=== PATIENT | female | born 1935 | race Caucasian/White ===

== ENCOUNTER 2016-12-08 21:13 | Inpatient (IN) | payer MEDICARE, OTHER ==
[~2016-12-08] VITALS: Ht 157.5 cm; Wt 63.5 kg
[~2016-12-08 21:13] MED LIST: ACET325T21 PO; ASPI81TA9 PO; ATOR10TA60 PO; CLOP75TA PO; CRAN200C PO; CYAN10002 IM; DOCU100C5 PO; FURO40TA4 PO; GABA-586 PO; GLIP5TAB10 PO; HYDR-2666 PO; HYDR-971 PO; INSU100V13 SQ; LIOT5TAB3 PO; LORA0.5T PO; LORA10TA3 PO; LOSA50TA6 PO; MELA3TAB PO; MEMA10TA PO; METAMUCIL425 GM PO; METF500T4 PO; METO-269 PO; NITR0.4T SL; OMEP20CA9 PO; PARO20TA3 PO; POTA10CA PO; POTA10TA10 PO; PRAV10TA2 PO; PROM25TA10 PO; PROP15DR EACHEYE; PROP1DRO OP; SERT50TA8 PO; SOLI10TA PO; TRAM50TA PO; VALS80TA3 PO
--- NOTE | 2016-12-08 22:04 | ED.ADGEN ---
Past Medical History Past Medical History: CAD, Dementia, Depression, Diabetes-Type I, GERD, Hypertension Additional Past Medical Histor: sleep apnea Past Surgical History: Other Additional Past Surgical Histo: RT MASTECTOMY AND LUMPECTOMY Alcohol Use: None Drug Use: None Adult General Chief Complaint Chief Complaint: MECHANICAL FALL HPI HPI Patient is a 81 year old woman, history of dementia, hypertension, depression, GERD, who presents to the emergency department via EMS from her nursing facility with report of fall. Patient appears to be at her baseline mental status per report, and is confused, complaining of pain in her left hip, left lower extremity is noted to be rotated. Per report, patient did strike her head against the wall also. No loss of consciousness was reported. Patient cannot give me details regarding the event. She denies any other pain at this time. C- collar placed upon arrival to the emergency department due to mechanism action at baseline mental status per Nexus criteria. Review of Systems Review of Systems Constitutional: Denies fever or chills. [] Eyes: Denies change in visual acuity. [] HENT: Denies nasal congestion or sore throat. [] Respiratory: Denies cough or shortness of breath. [] Cardiovascular: Denies chest pain or edema. [] GI: Denies abdominal pain, nausea, vomiting, bloody stools or diarrhea. [] : Denies dysuria. [] Musculoskeletal: Denies back pain, pain in the left hip. Integument: Denies rash. [] Neurologic: Denies headache, focal weakness or sensory changes. [] Endocrine: Denies polyuria or polydipsia. [] Lymphatic: Denies swollen glands. [] Psychiatric: Denies depression or anxiety. [] Current Medications Current Medications Current Medications Medications (Trade) Dose Ordered Sig/Yudith Start Time Stop Time Status Last Admin Dose Admin Fentanyl Citrate (Fentanyl 2ml Vial) 50 mcg PRN Q15MIN PRN 12/09/16 02:15 12/10/16 02:14 12/09/16 03:17 50 MCG Allergies Allergies Allergies Coded Allergies Type Severity Reaction Last Updated Verified codeine Allergy Intermediate 09/10/14 Yes hydrocodone bitartrate Allergy Intermediate 09/10/14 Yes shellfish derived Allergy Intermediate 09/10/14 Yes Physical Exam Physical Exam Constitutional: Well developed, well nourished, patient in mild distress secondary to pain, and confused, non-toxic appearance. [] HENT: Normocephalic, atraumatic, bilateral external ears normal, oropharynx moist, no oral exudates, nose normal. [] Eyes: PERRLA, EOMI, conjunctiva normal, no discharge. [] Neck: Normal range of motion, no tenderness, supple, no stridor. [] Cardiovascular:Heart rate regular rhythm, no murmur, S1, S2, rubs or gallops. [] Lungs & Thorax: Bilateral breath sounds clear to auscultation, no wheezing, rhonchi, rales. No chest wall crepitus or tenderness. [] Abdomen: Bowel sounds normal, soft, no tenderness, no rebound, rigidity, no guarding, no masses, no pulsatile masses. [] Skin: Warm, dry, no erythema, no rash. [] Back: No tenderness, no step-offs or deformities, no midline or paraspinal tenderness, no CVA tenderness. [] Extremities: Patient's left lower extremity noted to be rotated, held flexed position, patient complaining of pain, tenderness palpation in the groin and lateral aspect of the hip. No external signs of trauma identified, no cyanosis, no clubbing, other extremities are unremarkable. No edema. Neurologic: Alert and oriented X 1, normal motor function, normal sensory function, no focal deficits noted. [] Psychologic: Affect normal, judgement normal, mood normal. [] Current Patient Data Vital Signs Vital Signs Date Time Temp Pulse Resp B/P Pulse Ox O2 Delivery O2 Flow Rate FiO2 12/09/16 03:17 18 Room Air 12/09/16 02:30 80 114/54 93 12/08/16 21:48 97.8 97.8 Lab Values Laboratory Tests Test 12/08/16 22:20 12/09/16 00:02 Urine Collection Type U cath Urine Color Yellow Urine Clarity Cloudy Urine pH 5.5 Urine Specific [place] 1.025 Urine Protein Negativemg/dL (NEG-TRACE) Urine Glucose (UA) >=1000mg/dL (NEG) Urine Ketones (Stick) Negativemg/dL (NEG) Urine Blood Trace (NEG) Urine Nitrite Positive (NEG) Urine Bilirubin Negative (NEG) Urine Urobilinogen Dipstick 0.2mg/dL (0.2 mg/dL) Urine Leukocyte Esterase Moderate (NEG) Urine RBC 3-5/HPF (0-2) Urine WBC 1-4/HPF (0-4) Urine Squamous Epithelial Cells Mod/LPF Urine Transitional Epithelial Cells Occ/LPF Urine Bacteria Many/HPF (0-FEW) Urine Opiates Screen Neg (NEG) Urine Methadone Screen Neg (NEG) Urine Barbiturates Neg (NEG) Urine Phencyclidine Screen Neg (NEG) Urine Amphetamine/Methamphetamine Neg (NEG) Urine Benzodiazepines Screen Pos (NEG) Urine Cocaine Screen Neg (NEG) Urine Cannabinoids Screen Neg (NEG) Urine Ethyl Alcohol Neg (NEG) White Blood Count 11.4x10^3/uL (4.0-11.0) H Red Blood Count 4.49x10^6/uL (3.50-5.40) Hemoglobin 13.3g/dL (12.0-15.5) Hematocrit 39.9% (36.0-47.0) Mean Corpuscular Volume 89fL (79-100) Mean Corpuscular Hemoglobin 30pg (25-35) Mean Corpuscular Hemoglobin Concent 33g/dL (31-37) Red Cell Distribution Width 13.2% (11.5-14.5) Platelet Count 156x10^3/uL (140-400) Neutrophils (%) (Auto) 89% (31-73) H Lymphocytes (%) (Auto) 6% (24-48) L Monocytes (%) (Auto) 4% (0-9) Eosinophils (%) (Auto) 0% (0-3) Basophils (%) (Auto) 0% (0-3) Neutrophils # (Auto) 10.1x10^3uL (1.8-7.7) H Lymphocytes # (Auto) 0.7x10^3/uL (1.0-4.8) L Monocytes # (Auto) 0.5x10^3/uL (0.0-1.1) Eosinophils # (Auto) 0.0x10^3/uL (0.0-0.7) Basophils # (Auto) 0.0x10^3/uL (0.0-0.2) Segmented Neutrophils % 82% (35-66) H Band Neutrophils % 6% (0-9) Lymphocytes % 6% (24-48) L Monocytes % 6% (0-10) Toxic Granulation Slight Toxic Vacuolation Slight Platelet Estimate Adequate (ADEQUATE) Prothrombin Time 12.6SEC (11.7-14.0) Prothrombin Time INR 1.0 (0.8-1.1) PTT 25SEC (24-38) Sodium Level 141mmol/L (136-145) Potassium Level 4.0mmol/L (3.5-5.1) Chloride Level 102mmol/L (98-107) Carbon Dioxide Level 28mmol/L (21-32) Anion Gap 11 (6-14) Blood Urea Nitrogen 21mg/dL (7-20) H Creatinine 0.9mg/dL (0.6-1.0) Estimated GFR (Cockcroft-Gault) 60.2 BUN/Creatinine Ratio 23 (6-20) H Glucose Level 305mg/dL (70-99) H Calcium Level 9.7mg/dL (8.5-10.1) Total Bilirubin 0.4mg/dL (0.2-1.0) Aspartate Amino Transferase (AST) 21U/L (15-37) Alanine Aminotransferase (ALT) 22U/L (14-59) Alkaline Phosphatase 74U/L (46-116) Troponin I Quantitative < 0.017ng/mL (0.000-0.055) [id number]-Ymk-X-Type Natriuretic Peptide 129pg/mL (0-449) Total Protein 7.4g/dL (6.4-8.2) Albumin 3.5g/dL (3.4-5.0) Albumin/Globulin Ratio 0.9 (1.0-1.7) L Laboratory Tests 12/09/16 00:02 Laboratory Tests 12/09/16 00:02 EKG EKG EC: Sinus rhythm, heart rate 74 beats minute, left axis deviation, with moderate baseline artifact noted, QTc of 400, NM 150, QRS of 90, no ST elevations or depressions, abnormal ECG, does not meet STEMI criteria. As interpreted by me. [] Radiology/Procedures Radiology/Procedures [] [facility] [address] [place], [place] [id number] IMAGING REPORT Signed PATIENT: CANDACE RODRIGUEZ ACCOUNT: [id number] : 1935 LOCATION: ER AGE: 81 SEX: F EXAM STATUS: REG ER ORD. PHYSICIAN: SAVANNAH RAMIRES DO REASON: fall/head injury PROCEDURE: HEAD AND CERVICAL SPINE WO PROCEDURE CT Head CT cervical spine without intravenous contrast. HISTORY Trauma, fall, pain. TECHNIQUE Axial images are obtained of the head from the skull base through the vertex without IV contrast Noncontrast CT of the cervical spine was performed. Axial, sagittal, and coronal reconstructions were obtained. Exposure: One or more of the following individualized dose reduction techniques were utilized for this examination: 1. Automated exposure control. 2. Adjustment of the mA and/or kV according to patient size. 3. Use of iterative reconstruction technique. COMPARISON CT head January 09, 2016. FINDINGS CT head: The ventricles are appropriate in size, shape, and location for the patient's age.No obvious intracranial mass, midline shift, or obvious acute infarction is identified.Basilar cisterns are patent. There is a thin, acute, right lateral hemispheric subdural hemorrhage which has maximum thickness of 4 millimeters. No midline midline shift is identified. Bone windows demonstrate no acute calvarial abnormality.The visualized paranasal sinuses appear clear. Large scalp hematoma is seen at the left aspect of the vertex. CT C-spine: No acute fracture or acute malalignment is identified. No prevertebral soft tissue swelling is seen. Multilevel degeneration is present with facet and uncovertebral hypertrophy as well as multilevel degenerative disc disease. IMPRESSION 1. Acute thin right lateral hemispheric subdural hemorrhage. 2. No acute osseous traumatic injury identified in the cervical spine. 3. Results discussed with emergency department staff, Dr. Ramires, at 2355 hours. Electronically signed by: Luis Garnett MD (Dec 08, 2016 23:56:35) DICTATED and SIGNED BY: LUIS GARNETT MD DATE: 12/08/16 5421 CC: SAVANNAH RAMIRES DO; BENITO GEIGER MD ~ Chest x-ray: One view: Suboptimal respiratory effort, some flattening of diaphragms noted, no significant infiltrates, effusions, soft tissue or bony abnormalities identified. As interpreted by me. Pelvis and left hip: Three-view: Patient with a femoral neck fracture of the left femur, no other bony or soft tissue abnormalities identified. As interpreted by me. Course & Med Decision Making Course & Med Decision Making Pertinent Labs and Imaging studies reviewed. (See chart for details) Additional information obtained from patient's her nursing facility, patient is on hospice. Patient's hospice nurse, Mercy, did contact the ED, states that she is en route to the ED. She states that she has been in contact with the patient' s the POA, her grandson, who is requesting the patient be evaluated at this time. I also spoke with Dr. Geiger, the patient's primary care provider and associate director of nursing, will proceed with CT of the head and cervical spine at this time, x-ray of the hip and pelvis, as patient's examination is consistent with a left hip fracture. Patient received several doses of IV fentanyl in the ED, resting more comfortably at that time. CT of the head and cervical spine reveals small lateral hemispheric right sided subdural hematoma. No midline shift identified, maximum thickness of 4 mm. No abnormalities identified in the cervical spine, patient's c-collar was cleared. Urinary tract infection noted on patient's laboratory studies, IV ceftriaxone initiated. I did speak with the patient's grandson, who was contacted by nurse [place], he expressed that he was hesitant to have the patient undergoing any surgical procedures, due to her fragile medical status. Discussed that I understand that his concerns, and the goal would be to make the patient as comfortable as possible. I did speak with Dr. Dickey of orthopedics, all findings as above including the patient's small known hematoma, and underlying cardiac and renal disease discussed. It is his opinion that with the patient's fracture, that a surgical procedure that would be aimed at stabilizing the hip to promote maximal comfort and quality would be potentially beneficial for the patient. Hospice nurse Mercy and charge nurse Johanna did attempt to reach the patient's grandson again, to enable a further discussion regarding the benefits versus risk of proceeding with a stabilizing surgery, these attempts were unsuccessful, several messages were left for. Multiple attempts made to reach Dr. Geiger, we did discuss the patient's examination and course, at this time he requests the patient be admitted to his service, to revoke hospice at this point, in order to allow for patient's family to be fully apprised of potential benefits versus risk and to determine the best course for maximizing patient's comfort and quality. No indication for neurosurgical consultation as intervention would not be desired. Will consult Dr. Dickey to speak with the family. Based on wishes expressed by patient's family, patient will remain DNR at this time, will continue pain medication, supple oxygen, admitted to a medical surgical bed. Dragon Disclaimer Dragon Disclaimer This electronic medical record was generated, in whole or in part, using a voice recognition dictation system. Departure Impression: Primary Impression: Urinary tract infection Additional Impressions: Fracture of neck of left femur Subdural hematoma Disposition: ADMITTED INPATIENT Admitting Physician: Benito Geiger Condition: IMPROVED Problem Qualifiers SAVANNAH RAMIRES DO Dec 08, 2016 22:04
[2016-12-08 23:10] LABS: BILIRUBIN,URINE NEGATIVE (NEG); GLUCOSE,URINE >=1000 mg/dL (NEG); NITRITE,URINE POSITIVE (NEG); PH,URINE 5.5; PROTEIN,URINE NEGATIVE (NEG-TRACE); UROBILINOGEN,URINE 0.2 mg/dL (0.2 mg/dL)
[2016-12-08 23:21] LABS: BACTERIA,URINE MANY /HPF (0-FEW); SQUAMOUS EPITHELIAL CELL,UR MOD /LPF
[2016-12-08 23:24] LABS: BARBITURATES NEG (NEG); BENZODIAZEPINES POS (NEG); CANNABINOIDS NEG (NEG); COCAINE NEG (NEG); METHADONE NEG (NEG); OPIATES NEG (NEG); PHENCYCLIDINE NEG (NEG)
[2016-12-08 23:25] LABS: ETHANOL, URINE NEG (NEG)
[2016-12-08] MEDS: FENTANYL PF 100 MCG/2 ML VIAL. IV PRN (23:56)
--- NOTE | 2016-12-08 23:58 | RAD ---
PROCEDURE CT Head CT cervical spine without intravenous contrast. HISTORY Trauma, fall, pain. TECHNIQUE Axial images are obtained of the head from the skull base through the vertex without IV contrast Noncontrast CT of the cervical spine was performed. Axial, sagittal, and coronal reconstructions were obtained. Exposure: One or more of the following individualized dose reduction techniques were utilized for this examination: 1. Automated exposure control. 2. Adjustment of the mA and/or kV according to patient size. 3. Use of iterative reconstruction technique. COMPARISON CT head January 09, 2016. FINDINGS CT head: The ventricles are appropriate in size, shape, and location for the patient's age.No obvious intracranial mass, midline shift, or obvious acute infarction is identified.Basilar cisterns are patent. There is a thin, acute, right lateral hemispheric subdural hemorrhage which has maximum thickness of 4 millimeters. No midline midline shift is identified. Bone windows demonstrate no acute calvarial abnormality.The visualized paranasal sinuses appear clear. Large scalp hematoma is seen at the left aspect of the vertex. CT C-spine: No acute fracture or acute malalignment is identified. No prevertebral soft tissue swelling is seen. Multilevel degeneration is present with facet and uncovertebral hypertrophy as well as multilevel degenerative disc disease. IMPRESSION 1. Acute thin right lateral hemispheric subdural hemorrhage. 2. No acute osseous traumatic injury identified in the cervical spine. 3. Results discussed with emergency department staff, Dr. Callahan, at 2355 hours. Electronically signed by: Luis Del Castillo MD (Dec 08, 2016 23:56:35)
[2016-12-09] VITALS (12 sets, daily range): BP systolic 111–167; BP diastolic 51–71
[2016-12-09 00:11] LABS: BASO % 0 % (0-3); EOS % 0 % (0-3); HEMATOCRIT 39.9 % (36.0-47.0); HEMOGLOBIN 13.3 g/dL (12.0-15.5); LYMPH # 0.7 x10^3/uL (1.0-4.8); LYMPH % 6 % (24-48); MEAN CORPUSCULAR HEMOGLOBIN 30 pg (25-35); MEAN CORPUSCULAR HGB CONC 33 g/dL (31-37); MEAN CORPUSCULAR VOLUME 89 fL (79-100); MONO % 4 % (0-9); NEUT % 89 % (31-73); PLATELET COUNT 156 x10^3/uL (140-400); RED BLOOD COUNT 4.49 x10^6/uL (3.50-5.40); RED CELL DISTRIBUTION WIDTH 13.2 % (11.5-14.5); WHITE BLOOD COUNT 11.4 x10^3/uL (4.0-11.0)
[2016-12-09 00:20] LABS: PROTHROMBIN TIME PATIENT 12.6 SEC (11.7-14.0)
[2016-12-09 00:24] LABS: CALCIUM 9.7 mg/dL (8.5-10.1); CREATININE 0.9 mg/dL (0.6-1.0); GFR 60.2
[2016-12-09 00:30] LABS: ALBUMIN 3.5 g/dL (3.4-5.0); ALBUMIN/GLOBULIN RATIO 0.9 (1.0-1.7); TOTAL BILIRUBIN 0.4 mg/dL (0.2-1.0); TOTAL PROTEIN 7.4 g/dL (6.4-8.2)
[2016-12-09 00:34] LABS: PLT ESTIMATE ADEQUATE (ADEQUATE); TOXIC GRANULATION SLIGHT; TOXIC VACUOLATION SLIGHT
[2016-12-09] MEDS: FENTANYL PF 100 MCG/2 ML VIAL. IV PRN ×7 (00:56→18:46)
[2016-12-09] MEDS ORDERED: ACETAMINOPHEN 325 MG TABLET. PO PRN (03:45)
[2016-12-09] MEDS ORDERED: ONDANSETRON PF 4 MG/2 ML VIAL. IV PRN ×2 (03:45→17:45)
[2016-12-09] MEDS ORDERED: CEFTRIAXONE 1GM IVPB FOR OMNI 50 ML IV ONE (04:30)
[2016-12-09] MEDS: CEFTRIAXONE SODIUM 1 GM in IV NORMAL SALINE 50ML 50 ML IV SCH (05:22)
--- NOTE | 2016-12-09 07:00 | ACF ---
Admission Forms Criteria MUSCULOSKELETAL DISEASE GRG Clinical Indications for Admission to Inpatient Care (Place 'X' for any and all applicable criteria): Hospital admission is needed for appropriate care of the patient because of ANY ONE of the following: [x]I. Fracture, dislocation, or other musculoskeletal injury requiring inpatient care(medical) as indicated by ANY ONE of the following(4)(5)(6)(7) [ ]a) Vertebral fracture requiring observation for instability or neurologic compromise (8) [ ]b) Compartment syndrome (proven or cannot be ruled out during observation level of care) (9) [ ]c) Limb-threatening injury [x]d) Major injury requiring inpatient stabilization such as traction initiation or external fixation before internal fixation or closure of complex or open fracture [ ]e) Major injury requiring inpatient treatment after emergency or observation level care (as appropriate) [ ]f) Severe pain requiring acute inpatient management [ ]II. Newly diagnosed or suspected bone, joint, or orthopedic device infection (e.g., osteomyelitis, septic arthritis) needing ANY ONE of the following(1)(2)(3) [ ]a) IV antibiotics that cannot be initiated in other than inpatient setting (e.g., patient too unstable or home infusion not available) [ ]b) Device removal or replacement [ ]c) Bone or soft tissue debridement [ ]d) Joint drainage (drain placement or repetitive aspirations) [ ]III. Severe rheumatologic disease (e.g., systemic lupus erythematosus, rheumatoid arthritis) with complications or comorbidities (Also use Optimal Recovery Care Criteria or General Recovery Criteria as appropriate on the basis of predominant condition), including ANY ONE of the following(10 )(11)(12)(13) [ ]a) Severe infection (e.g., [employer] infection, sepsis) (14) [ ]b) Respiratory complications, including ANY ONE of the following: [ ]i) Pleural effusion with respiratory compromise [ ]ii) Pulmonary hypertension with congestive failure [ ]iii) Respiratory failure [ ]iv) Pulmonary hemorrhage (15) [ ]c) Hematologic disease, including ANY ONE of the following: [ ]i) Coagulopathy with bleeding [ ]ii) Thrombosis with hypercoagulable state [ ]iii) Thrombotic thrombocytopenic purpura [ ]d) Cerebritis with seizures, psychosis, or other severe abnormalities [ ]e) Vertebral destruction with monitoring needed for cervical myelopathy& possible respiratory compromise [ ]f) Exacerbation that requires inpatient treatment (e.g., intravenous immunosuppression) (16) [ ]g) Acute renal failure [ ]IV. Severe vasculitis with complications or comorbidities (Also use Optimal Recovery Care Criteria or General Recovery Criteria as appropriate on the basis of predominant condition), including ANY ONE of the following(11)(12)(17)(18)(19)(20) [ ]a) [employer] vasculitis with seizures, psychosis, or other severe abnormalities (22) [ ]b) Renal failure (16) [ ]c) Pulmonary hemorrhage (15) [ ]d) Cerebral infarction [ ]e) Gastrointestinal ischemia [ ]f) Gangrene or threatened amputation [ ]g) Exacerbation that requires inpatient treatment (e.g., intravenous immunosuppression) (19)(21) [ ]V. Severe myopathy as indicated by ANY ONE of the following (28)(29) [ ]a) New onset of airway compromise or inability to swallow [ ]b) Respiratory deterioration with observation needed for impending respiratory failure [ ]c) Exacerbation that requires inpatient treatment (e.g., intravenous immunosuppression) [ ]. Severe gout (crystal arthropathy) as indicated by ANY ONE of the following (23)(24) [ ]a) Severe pain requiring acute inpatient management [ ]b) Exacerbation that requires inpatient treatment (e.g., intravenous treatment) [ ]VII.Rhabdomyolysis and ANY ONE of the following (25)(26)(27) [ ]a) Acute renal failure [ ]b) Need for intravenous hydration after emergency or observation level care (as appropriate) [ ]c) Inability to maintain oral hydration [ ]d) Change in mental status [ ]e) Electrolyte abnormality that remains after emergency or observation level care (as appropriate) [ ]VIII Post amputation complication, as indicated by ANY ONE of the following [ ]a) Infection [ ]b) Dehiscence [ ]c) Myodesis failure [ ]IX. Severe pain requiring acute inpatient management as indicated by ALL of the following (30)(31)(32) [ ]a) Continuous or frequent (e.g., every 2 to 4 hrs) parenteral analgesics required [A] [ ]b) Rapid improvement expected from treatment or acute intervention ( e.g., surgery, anesthesia procedure[B] [ ]X. Musculoskeletal Disease and ALL of the following: [ ]a) Symptom or finding for which emergency and observation care have failed or are not considered appropriate (Use General Criteria: Observation Care as appropriate) [ ]b) Presence of ANY ONE of the following [ ]i) A General Admission Criteria [ ]ii) A Pediatric General Admission Criteria The original [facility] content created by [facility] has been revised. The portions of the content which have been revised are identified through the use of italic text or in bold, and [facility] has neither reviewed nor approved the modified material. All other unmodified content is copyright [facility]. Please see references footnoted in the original [facility] edition 2016 Admission Criteria Met?: Yes YOLANDA WADE Dec 09, 2016 07:00
--- NOTE | 2016-12-09 07:53 | RAD ---
Pelvis with left hip, 3 views, 12/08/2016: History: Fall, pain The bony structures are demineralized. There is a subcapital fracture of the left femoral neck. There is mild proximal displacement of the distal fracture fragment with overriding at the fracture site. There is mild narrowing of both hip joints with mild marginal spurring. No other fracture is evident. Scattered vascular calcifications are noted. IMPRESSION: 1. Demineralization. 2. Acute left femoral neck fracture. Portable chest, 12/08/2016: History: Fall, preop evaluation Comparison is made to a study from 09/05/2014. The heart appears to be within normal limits in size. There is mild tortuosity of the thoracic aorta. The pulmonary vascularity is normal. There is minimal parenchymal scarring in the right upper lobe. No acute infiltrates are seen. There is no evidence of pleural fluid or pneumothorax. The bony structures are demineralized. Surgical clips are projected over the right axilla. There is an old, internally fixed, healed proximal left humeral fracture. IMPRESSION: No acute cardiopulmonary abnormality is detected.
--- NOTE | 2016-12-09 08:06 | EKG ---
[facility] [address] [place] [address] Test Date: 2016-12-08 Test Time: 21:27:29 Pat Name: CANDACE RODRIGUEZ Department: Room: 414 Gender: F Motorman/Woman: : 1935 Requested By: SAVANNAH RAMIRES Order Number: [id number] Reading MD: Wanda Marmolejo Measurements Intervals [place] Rate: 74 P: 47 HI: 150 QRS: -18 QRSD: 90 T: 28 QT: 360 QTc: 400 Interpretive Statements SINUS RHYTHM LEFTWARD AXIS OTHERWISE NORMAL ECG RI6.01 Compared to ECG 01/09/2016 16:42:54 No significant changes Electronically Signed On 12-09-2016 20:57:38 CDT by Wanda Marmolejo
[2016-12-09] MEDS ORDERED: NITROGLYCERIN SUBLINGUAL 0.4 MG BOTTLE OF 25. SL SCH (11:45)
[2016-12-09] MEDS ORDERED: ACETAMINOPHEN 325 MG TABLET. PO SCH (11:45)
[2016-12-09] MEDS ORDERED: LORAZEPAM 0.5 MG TABLET. PO PRN (11:45)
[2016-12-09] MEDS ORDERED: HYDROCODONE/APAP 5/325MG TABLET. PO SCH ×2 (11:45→21:00)
[2016-12-09] MEDS ORDERED: POLYVINYL ALCOHOL 1.4% OPHTH SOLUTION 15ML BOTTLE. OU PRN (12:15)
[2016-12-09] MEDS ORDERED: PROMETHAZINE 12.5 MG TABLET. PO PRN (12:15)
[2016-12-09] MEDS: TRAMADOL 50 MG TABLET. PO SCH ×2 (13:00→21:14)
[2016-12-09] MEDS: PANTOPRAZOLE 40 MG TABLET. PO SCH (13:00)
[2016-12-09] MEDS: SERTRALINE 50 MG TABLET. PO SCH (13:00)
[2016-12-09] MEDS: CETIRIZINE HCL 10 MG TABLET. PO SCH (13:00)
[2016-12-09] MEDS: METOPROLOL SUCC 24HR ER 50 MG TAB.ER.24H. PO SCH (13:00)
[2016-12-09] MEDS: OXYBUTYNIN CHLORIDE 5 MG TABLET PO SCH ×2 (13:35→21:14)
[2016-12-09] MEDS: GABAPENTIN 300 MG CAPSULE. PO SCH ×2 (13:35→21:13)
--- NOTE | 2016-12-09 14:15 | PDOC ---
Provider Note Provider Note patient seen and examined small SDH will need f/u CT head in a week scheduled for left hip surgery today full consult to follow ABIGAIL HELLER MD Dec 09, 2016 14:15
[2016-12-09] MEDS ORDERED: LIDOCAINE 2% 100 MG/5 ML DISP.SYRIN. ONE (15:07)
[2016-12-09] MEDS ORDERED: PROPOFOL 20 ML IV ONE (15:07)
[2016-12-09] MEDS ORDERED: FENTANYL PF 100 MCG/2 ML VIAL. ONE (15:08)
[2016-12-09] MEDS ORDERED: DEXAMETHASONE SOD PHOS 20 MG/5 ML VIAL. ONE (15:08)
[2016-12-09] MEDS ORDERED: ROCURONIUM 50 MG/5 ML VIAL. ONE (15:08)
[2016-12-09] MEDS ORDERED: ONDANSETRON PF 4 MG/2 ML VIAL. ONE (15:08)
--- NOTE | 2016-12-09 15:09 | HP ---
ADMIT DATE: 12/09/2016 HISTORY OF PRESENT ILLNESS: This is an 81-year-old female patient, a resident at [facility], who was brought to the Emergency Department chronic complaint of severe pain in her left hip and her left lower extremity was noted to be short and externally rotated. She did strike her head against the wall also. There is no loss of consciousness; however, the patient is demented and gave useful information. She was in cervical collar placed upon arrival to the Emergency Room and has had x-rays of her hip and pelvis, which showed that she has acute left femoral neck fracture. Her chest x-ray showed no acute pulmonary abnormality, and she had had CT scan of the head and cervical spine, which showed that she has acute thin right lateral hemispheric subdural hemorrhage, but no acute fracture or acute malalignment identified in the cervical spine. She does have multilevel degenerative changes with facet and uncovertebral hypertrophy as well as multilevel degenerative disk disease. The patient was on hospice at the [facility]; however, her family has evoked and was admitted to consult the orthopedic surgeon. In fact, the orthopedic surgeon was consulted and he recommended surgery repair to assist with her pain management and she will go back on hospice after surgery. PAST MEDICAL HISTORY: Significant for advanced dementia, type 2 diabetes, hypertension, gastroesophageal reflux disease, and chronic kidney disease. PAST SURGICAL HISTORY: Significant for right mastectomy. ALLERGIES: SHE IS ALLERGIC TO SHELLFISH, HYDROCODONE AND CODEINE. MEDICATIONS: She was on following medications at [facility]. She was on Lexapro 10 mg once a day, melatonin 6 mg at bedtime, risperidone 0.5 mg by mouth 3 times a day, temazepam 15 mg at bedtime, tramadol 50 mg every 4 hours as needed, Xanax and alprazolam 0.5 mg every 8 hours. FAMILY HISTORY: Unremarkable. SOCIAL HISTORY: She is a resident at [facility]. She does not smoke, drink alcohol, or use illicit drugs. REVIEW OF SYSTEMS: As per history of present illness. PHYSICAL EXAMINATION: GENERAL: On arrival, on examining here in the Emergency Room, she apparently looked pale, no jaundice, cyanosis, or thyromegaly. No jugular venous distension. No lower limb edema. VITAL SIGNS: Her heart rate was 80, blood pressure 114/54, temperature was 97.8, respiratory rate was 18 and oxygen saturation was 93% on room air. HEAD, EYES, EARS, NOSE, THROAT: Shows normocephalic, atraumatic. NECK: Supple. HEART: Showed normal first and second heart sounds with no gallop, rub, or murmur. CHEST: Clear to auscultation. No crepitation or rhonchi. ABDOMEN: Soft, nontender. NEUROLOGIC: She is demented without any obvious lateralizing sign. All other cranial nerves are intact. She moves upper extremities without difficulty. Her left lower extremity was shortened and externally rotated. Her X-ray showed that she has left femoral neck fracture and she has also subdural hematoma. PLAN: To admit to the hospital with above diagnosis. We consulted Dr. Dickey, who apparently recommended surgical treatment. Once the patient is surgically treated, we will transfer her back to [facility] and continue with hospice care. YANDEL WU MD DR: CRICKET/adrien JOB#: [id number] / [id number]
[2016-12-09] MEDS ORDERED: CEFAZOLIN 1GM IVPB FOR OMNI 50 ML IV ONE ×2 (15:41→17:15)
[2016-12-09] MEDS ORDERED: MORPHINE SULFATE 5 MG, KETOROLAC TROMETHAMINE 30 MG, ROPIVacaine 0.5% PF 60 ML, EPINEPH... INT ART ONE ×5 (16:00)
[2016-12-09] MEDS ORDERED: SEVOFLURANE 61 TO 120 MINUTES. IH ONE (17:07)
[2016-12-09] MEDS ORDERED: FAMOTIDINE 20 MG/2 ML VIAL ONE (17:07)
[2016-12-09] MEDS ORDERED: GLYCOPYRROLATE 1 MG/5 ML VIAL. ONE (17:11)
[2016-12-09] MEDS ORDERED: NEOSTIGMINE METHYLSULFATE 5 MG/5 ML SYRINGE. ONE (17:11)
--- NOTE | 2016-12-09 17:33 | PDOC ---
BRIEF OPERATIVE NOTE Date: Dec 09, 2016 Pre-Op Diagnosis left femoral neck fx Post-Op Diagnosis same Procedure Performed left hip hemiarthroplasty Surgeon Keli Anesthesia Type: General Blood Loss 150cc Urine Output 400cc Specimens Obtained femoral head to pathology Findings above Complications none RUBÉN HEMPHILL MD Dec 09, 2016 17:33
[2016-12-09] MEDS ORDERED: IV RINGERS,LACTATED 1000ML 1,000 ML IV ONE (17:45)
[2016-12-09] MEDS ORDERED: DEXTROSE 50% 25 GM / 50ML DISP.SYRIN. IV PRN (17:45)
[2016-12-09] MEDS ORDERED: MORPHINE SULFATE 2 MG/ML DISP.SYRIN. IV PRN (17:45)
[2016-12-09] MEDS ORDERED: POLYETHYLENE GLYCOL 3350 17 GM PACKET. PO PRN (17:45)
[2016-12-09] MEDS ORDERED: HYDROMORPHONE 2 MG/ML VIAL. IVP PRN (17:45)
[2016-12-09] MEDS ORDERED: MORPHINE SULFATE 4 MG/ML DISP.SYRIN. IV PRN (17:45)
[2016-12-09] MEDS ORDERED: FENTANYL PF 100 MCG/2 ML VIAL. IV PRN (17:45)
[2016-12-09] MEDS ORDERED: OXYCODONE IR 5 MG TABLET. PO PRN (17:45)
[2016-12-09] MEDS: KETOROLAC TROMETHAMINE 30 MG, BUPIVACAINE MPF 0.25% 20 ML, EPINEPHRINE 0.5 MG in TOTAL ... INT ART SCH (19:55)
[2016-12-09] MEDS ORDERED: NON FORMULARY ITEM (Melatonin 3 MG) PO SCH (21:00)
[2016-12-09] MEDS ORDERED: NON FORMULARY ITEM (Pravastatin Sodium 1 TAB) PO SCH (21:00)
[2016-12-09] MEDS: LOSARTAN POTASSIUM 50 MG TABLET. PO SCH (21:06)
[2016-12-09] MEDS: LIOTHYRONINE 5 MCG TABLET. PO SCH (21:13)
[2016-12-09] MEDS: PAROXETINE 20 MG TABLET. PO SCH (21:13)
[2016-12-09] MEDS: DOCUSATE SODIUM 100 MG CAPSULE. PO SCH (21:13)
[2016-12-09] MEDS: ATORVASTATIN CALCIUM 10 MG TABLET. PO SCH (21:13)
[2016-12-09] MEDS: MEMANTINE 10 MG TABLET. PO SCH (21:13)
[2016-12-09] MEDS: INSULIN DETEMIR 300 UNITS/3 ML INSULN.PEN. SQ SCH (21:24)
[2016-12-09] MEDS: CEFAZOLIN SODIUM 1 GM in IV NORMAL SALINE 50ML 50 ML IV SCH (21:44)
--- NOTE | 2016-12-10 00:50 | OP ---
DATE OF SURGERY: 12/09/2016 PREOPERATIVE DIAGNOSIS: Displaced left femoral neck fracture. POSTOPERATIVE DIAGNOSIS: Displaced left femoral neck fracture. PROCEDURE: Left hip hemiarthroplasty. SURGEON: Marcos Dickey M.D. ANESTHESIA: General. ESTIMATED BLOOD LOSS: 150 mL. COMPLICATIONS: None. OPERATIVE INDICATIONS: The patient is an 81-year-old female, hospice patient, who had a fall today and sustained an injury to her hip and struck her head, had a small subdural hematoma that was elected to be treated nonoperatively and had had discussions with the family about the risks, benefits, postoperative course of possible operative treatment as well as nonoperative treatment options and the factors associated. The power of commercial real estate attorney after going through the treatment options, wished to proceed with the surgical treatment having been apprised of the possible risks of infection, nerve or blood vessel damage, possible instability, medical or anesthetic complications, even , as she has significant medical problems and is on hospice care currently. DESCRIPTION OF PROCEDURE: The patient was identified, procedure verified, patient placed in the supine position on the operating table. After adequate amounts of general endotracheal anesthesia were administered, she was placed in decubitus position, left side up. All bony prominences were padded and the left hip was prepped and draped in standard sterile fashion. After timeout was performed, the patient and procedure identified and verified, a curvilinear incision was made over the left hip, dissecting down to the iliotibial band and gluteal fascia both of which were split in line with their fibers. Charnley retractor was then placed. External rotators were divided at their insertion. Hip capsule was split in a T-fashion and the fractured femoral head was removed, sized at a size 44. The proximal femur was then prepared with a calcar cut and box osteotome as well as broaches up to a size 11, which fit well, was trialed fit with a 0 bipolar hemiarthroplasty component trial, which was noted to restore her leg length, offset and provide her excellent stability. Trial components were then removed and a size 11 Angela fracture stem was cemented in proper version and on the back table, a mm outside diameter, 28 mm inside diameter, cobalt-chrome polyethylene construct neck +0 size was tapped in place to engage the Bustos taper after cement was verified to be dry. Reduction was carried out after thorough irrigation with normal saline solution and equivalent stability noted. Hip capsule was repaired with #5 Ethibond suture. External rotators were reattached with #5 Ethibond as well. The Hemovac drain and pain catheter were placed. Pain catheter mixture was injected into the tissues. Fascia was closed with Ethibond suture interrupted and running #1 Vicryl suture. Subcutaneous closure with buried Vicryl sutures. Skin closure with leana. Sterile dressings were applied. The patient was extubated and transferred to postop holding in stable condition, having tolerated the procedure well. MARCOS DICKEY MD DR: MAR/adrien JOB#: [id number] / [id number] YANDEL Potter MD
[2016-12-10 03:00] VITALS: BP 116/54
[2016-12-10] MEDS: CEFAZOLIN SODIUM 1 GM in IV NORMAL SALINE 50ML 50 ML IV SCH ×2 (04:15→10:16)
[2016-12-10] MEDS: CEFTRIAXONE SODIUM 1 GM in IV NORMAL SALINE 50ML 50 ML IV SCH (05:02)
[2016-12-10 05:24] LABS: BASO % 0 % (0-3); EOS % 0 % (0-3); HEMOGLOBIN 10.3 g/dL (12.0-15.5); LYMPH # 0.8 x10^3/uL (1.0-4.8); LYMPH % 8 % (24-48); MEAN CORPUSCULAR HEMOGLOBIN 30 pg (25-35); MEAN CORPUSCULAR HGB CONC 34 g/dL (31-37); MEAN CORPUSCULAR VOLUME 88 fL (79-100); MONO % 8 % (0-9); NEUT % 84 % (31-73); PLATELET COUNT 154 x10^3/uL (140-400); RED BLOOD COUNT 3.41 x10^6/uL (3.50-5.40); RED CELL DISTRIBUTION WIDTH 13.6 % (11.5-14.5); WHITE BLOOD COUNT 11.1 x10^3/uL (4.0-11.0)
[2016-12-10 05:38] LABS: ALBUMIN 2.4 g/dL (3.4-5.0); ALBUMIN/GLOBULIN RATIO 0.7 (1.0-1.7); CALCIUM 8.6 mg/dL (8.5-10.1); CREATININE 0.9 mg/dL (0.6-1.0); GFR 60.2; POTASSIUM 4.3 mmol/L (3.5-5.1); TOTAL BILIRUBIN 0.3 mg/dL (0.2-1.0); TOTAL PROTEIN 5.8 g/dL (6.4-8.2)
[2016-12-10] MEDS ORDERED: MAGNESIUM HYDROXIDE 2,400 MG/30 ML ORAL.SUSP. PO PRN (06:00)
[2016-12-10] MEDS: KETOROLAC TROMETHAMINE 30 MG, BUPIVACAINE MPF 0.25% 20 ML, EPINEPHRINE 0.5 MG in TOTAL ... INT ART SCH (06:21)
--- NOTE | 2016-12-10 06:48 | CONS ---
DATE OF CONSULTATION: 12/09/2016 ORTHOPEDIC CONSULTATION REQUESTING PHYSICIAN: Dr. Geiger. REASON FOR CONSULTATION: Left hip fracture. HISTORY OF PRESENT ILLNESS: The patient is an 81-year-old female who is apparently in hospice care and is currently a resident of [facility] facility who had a fall yesterday, was brought in to the Emergency Department early this morning, complaining of left hip pain, inability to bear weight; reportedly, she hit her head against the wall with fall. I am unable to really get details from the patient; however, she has severe dementia and really she is in bed, stating that her hip hurts and sometimes asks to lie back down even when she is already lying down or that she wants to sit up, but that her hip hurts when she moves. Her grandson is her power of attorney general and actually had discussions with the Emergency Department doctor, resulting in the patient's admission rather than going back to her hospice facility with the broken hip. PAST MEDICAL HISTORY: Significant for type 2 diabetes, hypertension, advanced dementia, reflux disease, and chronic kidney disease. PAST SURGICAL HISTORY: Right-sided mastectomy. ALLERGIES: INCLUDE HYDROCODONE, CODEINE, AND SHELLFISH. MEDICATIONS: Include Lexapro, risperidone, tramadol, Xanax, alprazolam and temazepam. FAMILY HISTORY: Unobtainable. SOCIAL HISTORY: Again, she is a hospice resident at [facility]. Grandson is her power of attorney general. I spoke to his today who was also involved in her decision making on my evaluation in her room today. The patient does not smoke, use drugs or drink alcohol. REVIEW OF SYSTEMS: Unobtainable other than as reported from witnesses due to her dementia. PHYSICAL EXAMINATION: VITAL SIGNS: Temperature 98, pulse 68, respirations 16, blood pressure 162/72, 92% on 2 liters nasal cannula currently and she appears in no acute distress, but is obviously confused. She is moving her arms spontaneously, shoulder, elbow and wrist and does not appear to have any pain. The left leg is held in a shortened externally rotated position of comfort. She has normal motion of the right hip, bilateral knees and ankles, but again with any motion at all of the left lower extremity, complains of pain and sometimes even just with lying still. She has a well-healed incision from what appears to be a total knee arthroplasty on the left side as well and the knee appears stable. Overall, there did not seem to be any focal neurologic deficits. IMAGING STUDIES: Show a displaced femoral neck fracture on the left and showed a very small subdural hematoma, which was elected on her presentation in the Emergency Department based on discussions with the family to be treated nonoperatively. IMPRESSION: 1. Left femoral neck fracture. 2. Small subdural hematoma, stable. 3. The patient on hospice care. TREATMENT PLAN: I had discussed with the grandson, power of attorney general and his , the treatment options in the presence of the patient nonoperatively, certainly do not have the surgical risks, but have really continued pain with any type of mobilization to avoid pressure areas on the skin, for example, to reposition or use the bedpan and trying to sit up and eat or do any type of activity of transfer whatsoever even bathing, toileting, etc., would cause movement of the hip. There is really no way to fix the hip in place and have a reasonable chance of healing due to the disruption of blood supply and therefore if surgery would be instituted as a function and pain control measure, I would recommend a cemented hemiarthroplasty or have a hip replacement. I described to again the grandson's , the rationale for that give her a stable, nonpainful hip to allow her to get up and around just for her transfers and daily activities to alleviate the pain. Certainly, there are very high risks for surgery based on her medical condition resulting in the hospice care to begin with, but it really becomes a decision about pain relief. They certainly understand that it is a very high risk in terms of surgery, anesthetic complications or even , possibility of infection, nerve or blood vessel damage, medical or other issues possible with the surgical treatment as well that is mainly a pain relief and a measure to allow minimal function. All their questions were answered. Consent was obtained. Following my discussion with the family by the nursing staff including the power of attorney general grandson and they wished to proceed with surgical evaluation and treatment, which will occur today. RUBÉN HEMPHILL MD DR: MAR/adrien JOB#: [id number] / [id number]
[2016-12-10 07:00] VITALS: BP 119/47
[2016-12-10] MEDS ORDERED: POTASSIUM CHLORIDE 20 MEQ TABLET.ER. PO SCH (08:00)
[2016-12-10] MEDS: METOPROLOL SUCC 24HR ER 50 MG TAB.ER.24H. PO SCH (09:00)
[2016-12-10] MEDS: SENNOSIDES/DOCUSATE 8.6/50MG TABLET. PO SCH (10:00)
[2016-12-10] MEDS: SERTRALINE 50 MG TABLET. PO SCH (10:00)
[2016-12-10] MEDS: PANTOPRAZOLE 40 MG TABLET. PO SCH (10:01)
[2016-12-10] MEDS: GABAPENTIN 300 MG CAPSULE. PO SCH ×3 (10:01→21:53)
[2016-12-10] MEDS: DOCUSATE SODIUM 100 MG CAPSULE. PO SCH ×2 (10:01→21:53)
[2016-12-10] MEDS: OXYBUTYNIN CHLORIDE 5 MG TABLET PO SCH ×3 (10:02→21:53)
[2016-12-10] MEDS: CETIRIZINE HCL 10 MG TABLET. PO SCH (10:02)
[2016-12-10] MEDS: MEMANTINE 10 MG TABLET. PO SCH ×2 (10:02→21:53)
[2016-12-10] MEDS: TRAMADOL 50 MG TABLET. PO SCH ×2 (10:03→21:58)
--- NOTE | 2016-12-10 10:14 | RAD ---
Indication postop. Protocol study. An AP view of the pelvis was obtained as well as a lateral view of the left hip. Left hip prosthesis is noted. No complication or unexpected finding is seen.
[2016-12-10 11:00] VITALS: BP 95/42
[2016-12-10 15:00] VITALS: BP 102/32
[2016-12-10] MEDS ORDERED: BISACODYL 10 MG SUPP.RECT. PR PRN (16:00)
--- NOTE | 2016-12-10 17:46 | PDOC ---
PROGRESS NOTES Subjective Subjective Problems overnight: Patient sleepy but arousable today no hip discomfort noted. Has severe dementia Objective Vital Signs Vital Signs Date Time Temp Pulse Resp B/P Pulse Ox O2 Delivery O2 Flow Rate FiO2 12/10/16 15:00 98.1 61 14 102/32 94 Nasal Cannula 2.0 98.1 Physical Exam On exam hip incision clean dry intact leg lengths equal distal neurovascular status intact Labs Laboratory Tests Test 12/08/16 22:20 12/09/16 00:02 12/09/16 05:00 12/09/16 07:23 Urine Collection Type U cath Urine Color Yellow Urine Clarity Cloudy Urine pH 5.5 Urine Specific [place] 1.025 Urine Protein Negativemg/dL (NEG-TRACE) Urine Glucose (UA) >=1000mg/dL (NEG) Urine Ketones (Stick) Negativemg/dL (NEG) Urine Blood Trace (NEG) Urine Nitrite Positive (NEG) Urine Bilirubin Negative (NEG) Urine Urobilinogen Dipstick 0.2mg/dL (0.2 mg/dL) Urine Leukocyte Esterase Moderate (NEG) Urine RBC 3-5/HPF (0-2) Urine WBC 1-4/HPF (0-4) Urine Squamous Epithelial Cells Mod/LPF Urine Transitional Epithelial Cells Occ/LPF Urine Bacteria Many/HPF (0-FEW) Urine Opiates Screen Neg (NEG) Urine Methadone Screen Neg (NEG) Urine Barbiturates Neg (NEG) Urine Phencyclidine Screen Neg (NEG) Urine Amphetamine/Methamphetamine Neg (NEG) Urine Benzodiazepines Screen Pos (NEG) Urine Cocaine Screen Neg (NEG) Urine Cannabinoids Screen Neg (NEG) Urine Ethyl Alcohol Neg (NEG) White Blood Count 11.4x10^3/uL (4.0-11.0) Red Blood Count 4.49x10^6/uL (3.50-5.40) Hemoglobin 13.3g/dL (12.0-15.5) Hematocrit 39.9% (36.0-47.0) Mean Corpuscular Volume 89fL (79-100) Mean Corpuscular Hemoglobin 30pg (25-35) Mean Corpuscular Hemoglobin Concent 33g/dL (31-37) Red Cell Distribution Width 13.2% (11.5-14.5) Platelet Count 156x10^3/uL (140-400) Neutrophils (%) (Auto) 89% (31-73) Lymphocytes (%) (Auto) 6% (24-48) Monocytes (%) (Auto) 4% (0-9) Eosinophils (%) (Auto) 0% (0-3) Basophils (%) (Auto) 0% (0-3) Neutrophils # (Auto) 10.1x10^3uL (1.8-7.7) Lymphocytes # (Auto) 0.7x10^3/uL (1.0-4.8) Monocytes # (Auto) 0.5x10^3/uL (0.0-1.1) Eosinophils # (Auto) 0.0x10^3/uL (0.0-0.7) Basophils # (Auto) 0.0x10^3/uL (0.0-0.2) Segmented Neutrophils % 82% (35-66) Band Neutrophils % 6% (0-9) Lymphocytes % 6% (24-48) Monocytes % 6% (0-10) Toxic Granulation Slight Toxic Vacuolation Slight Platelet Estimate Adequate (ADEQUATE) Prothrombin Time 12.6SEC (11.7-14.0) Prothromb Time International Ratio 1.0 (0.8-1.1) Activated Partial Thromboplast Time 25SEC (24-38) Sodium Level 141mmol/L (136-145) Potassium Level 4.0mmol/L (3.5-5.1) Chloride Level 102mmol/L (98-107) Carbon Dioxide Level 28mmol/L (21-32) Anion Gap 11 (6-14) Blood Urea Nitrogen 21mg/dL (7-20) Creatinine 0.9mg/dL (0.6-1.0) Estimated GFR (Cockcroft-Gault) 60.2 BUN/Creatinine Ratio 23 (6-20) Glucose Level 305mg/dL (70-99) Calcium Level 9.7mg/dL (8.5-10.1) Total Bilirubin 0.4mg/dL (0.2-1.0) Aspartate Amino Transf (AST/SGOT) 21U/L (15-37) Alanine Aminotransferase (ALT/SGPT) 22U/L (14-59) Alkaline Phosphatase 74U/L (46-116) Troponin I Quantitative < 0.017ng/mL (0.000-0.055) UZ-Tfh-I-Type Natriuretic Peptide 129pg/mL (0-449) Total Protein 7.4g/dL (6.4-8.2) Albumin 3.5g/dL (3.4-5.0) Albumin/Globulin Ratio 0.9 (1.0-1.7) Nasal Screen MRSA (PCR) Positive (Negative) Glucose (Fingerstick) 247mg/dL (70-99) Test 12/09/16 10:30 12/09/16 15:31 12/09/16 20:46 12/10/16 04:45 Glucose (Fingerstick) 206mg/dL (70-99) 174mg/dL (70-99) 288mg/dL (70-99) White Blood Count 11.1x10^3/uL (4.0-11.0) Red Blood Count 3.41x10^6/uL (3.50-5.40) Hemoglobin 10.3g/dL (12.0-15.5) Hematocrit 30.0% (36.0-47.0) Mean Corpuscular Volume 88fL (79-100) Mean Corpuscular Hemoglobin 30pg (25-35) Mean Corpuscular Hemoglobin Concent 34g/dL (31-37) Red Cell Distribution Width 13.6% (11.5-14.5) Platelet Count 154x10^3/uL (140-400) Neutrophils (%) (Auto) 84% (31-73) Lymphocytes (%) (Auto) 8% (24-48) Monocytes (%) (Auto) 8% (0-9) Eosinophils (%) (Auto) 0% (0-3) Basophils (%) (Auto) 0% (0-3) Neutrophils # (Auto) 9.4x10^3uL (1.8-7.7) Lymphocytes # (Auto) 0.8x10^3/uL (1.0-4.8) Monocytes # (Auto) 0.9x10^3/uL (0.0-1.1) Eosinophils # (Auto) 0.0x10^3/uL (0.0-0.7) Basophils # (Auto) 0.0x10^3/uL (0.0-0.2) Sodium Level 139mmol/L (136-145) Potassium Level 4.3mmol/L (3.5-5.1) Chloride Level 104mmol/L (98-107) Carbon Dioxide Level 28mmol/L (21-32) Anion Gap 7 (6-14) Blood Urea Nitrogen 22mg/dL (7-20) Creatinine 0.9mg/dL (0.6-1.0) Estimated GFR (Cockcroft-Gault) 60.2 BUN/Creatinine Ratio 24 (6-20) Glucose Level 218mg/dL (70-99) Calcium Level 8.6mg/dL (8.5-10.1) Total Bilirubin 0.3mg/dL (0.2-1.0) Aspartate Amino Transf (AST/SGOT) 18U/L (15-37) Alanine Aminotransferase (ALT/SGPT) 16U/L (14-59) Alkaline Phosphatase 58U/L (46-116) Total Protein 5.8g/dL (6.4-8.2) Albumin 2.4g/dL (3.4-5.0) Albumin/Globulin Ratio 0.7 (1.0-1.7) Test 12/10/16 08:02 12/10/16 10:02 12/10/16 16:39 Glucose (Fingerstick) 177mg/dL (70-99) 176mg/dL (70-99) 188mg/dL (70-99) Laboratory Tests Test 12/09/16 20:46 12/10/16 04:45 12/10/16 08:02 12/10/16 10:02 Glucose (Fingerstick) 288mg/dL (70-99) 177mg/dL (70-99) 176mg/dL (70-99) White Blood Count 11.1x10^3/uL (4.0-11.0) Red Blood Count 3.41x10^6/uL (3.50-5.40) Hemoglobin 10.3g/dL (12.0-15.5) Hematocrit 30.0% (36.0-47.0) Mean Corpuscular Volume 88fL (79-100) Mean Corpuscular Hemoglobin 30pg (25-35) Mean Corpuscular Hemoglobin Concent 34g/dL (31-37) Red Cell Distribution Width 13.6% (11.5-14.5) Platelet Count 154x10^3/uL (140-400) Neutrophils (%) (Auto) 84% (31-73) Lymphocytes (%) (Auto) 8% (24-48) Monocytes (%) (Auto) 8% (0-9) Eosinophils (%) (Auto) 0% (0-3) Basophils (%) (Auto) 0% (0-3) Neutrophils # (Auto) 9.4x10^3uL (1.8-7.7) Lymphocytes # (Auto) 0.8x10^3/uL (1.0-4.8) Monocytes # (Auto) 0.9x10^3/uL (0.0-1.1) Eosinophils # (Auto) 0.0x10^3/uL (0.0-0.7) Basophils # (Auto) 0.0x10^3/uL (0.0-0.2) Sodium Level 139mmol/L (136-145) Potassium Level 4.3mmol/L (3.5-5.1) Chloride Level 104mmol/L (98-107) Carbon Dioxide Level 28mmol/L (21-32) Anion Gap 7 (6-14) Blood Urea Nitrogen 22mg/dL (7-20) Creatinine 0.9mg/dL (0.6-1.0) Estimated GFR (Cockcroft-Gault) 60.2 BUN/Creatinine Ratio 24 (6-20) Glucose Level 218mg/dL (70-99) Calcium Level 8.6mg/dL (8.5-10.1) Total Bilirubin 0.3mg/dL (0.2-1.0) Aspartate Amino Transf (AST/SGOT) 18U/L (15-37) Alanine Aminotransferase (ALT/SGPT) 16U/L (14-59) Alkaline Phosphatase 58U/L (46-116) Total Protein 5.8g/dL (6.4-8.2) Albumin 2.4g/dL (3.4-5.0) Albumin/Globulin Ratio 0.7 (1.0-1.7) Test 12/10/16 16:39 Glucose (Fingerstick) 188mg/dL (70-99) Imaging Postop x-rays show excellent positioning of a hemiarthroplasty left hip Assessment Assessment POD# [1], S/P [left hip hemiarthroplasty] Problems: Plan Plan of Care Mobilize as tolerated with physical therapy weightbearing as tolerated, loose adherence to hip precautions due to her dementia Patient is on hospice care unclear of the strict medical indications for this Likely back to hospice care facility when medically able as she is stable from an orthopedic standpoint RUBÉN HEMPHILL MD Dec 10, 2016 17:46
[2016-12-10 18:02] LABS: HEMATOCRIT 29.5 % (36.0-47.0); HEMOGLOBIN 10.1 g/dL (12.0-15.5)
[2016-12-10 19:20] VITALS: BP 106/45
[2016-12-10] MEDS: LIOTHYRONINE 5 MCG TABLET. PO SCH (21:52)
[2016-12-10] MEDS: ATORVASTATIN CALCIUM 10 MG TABLET. PO SCH (21:52)
[2016-12-10] MEDS: PAROXETINE 20 MG TABLET. PO SCH (21:53)
[2016-12-10] MEDS: LOSARTAN POTASSIUM 50 MG TABLET. PO SCH (21:55)
[2016-12-10] MEDS: INSULIN DETEMIR 300 UNITS/3 ML INSULN.PEN. SQ SCH (22:09)
[2016-12-10 23:31] VITALS: BP 115/45
[2016-12-11] MEDS ORDERED: POTASSIUM CHLORIDE 10 MEQ TABLET.ER. PO SCH
[2016-12-11 00:48] VITALS: BP 113/54
[2016-12-11 03:32] VITALS: BP 99/36
[2016-12-11 04:09] VITALS: BP 101/39
[2016-12-11] MEDS: CEFTRIAXONE SODIUM 1 GM in IV NORMAL SALINE 50ML 50 ML IV SCH (05:08)
[2016-12-11] MEDS ORDERED: FENTANYL PF 100 MCG/2 ML VIAL. IV PRN (05:08)
[2016-12-11] MEDS ORDERED: HYDROMORPHONE 2 MG/ML VIAL. IVP PRN (05:09)
[2016-12-11] MEDS ORDERED: ONDANSETRON PF 4 MG/2 ML VIAL. IV PRN (05:09)
[2016-12-11 05:10] VITALS: BP 103/40
[2016-12-11 06:21] LABS: BASO % 0 % (0-3); EOS % 2 % (0-3); HEMATOCRIT 26.3 % (36.0-47.0); HEMOGLOBIN 8.9 g/dL (12.0-15.5); LYMPH # 1.3 x10^3/uL (1.0-4.8); LYMPH % 14 % (24-48); MEAN CORPUSCULAR HEMOGLOBIN 30 pg (25-35); MEAN CORPUSCULAR HGB CONC 34 g/dL (31-37); MEAN CORPUSCULAR VOLUME 89 fL (79-100); MONO % 9 % (0-9); NEUT % 74 % (31-73); PLATELET COUNT 128 x10^3/uL (140-400); RED BLOOD COUNT 2.96 x10^6/uL (3.50-5.40); RED CELL DISTRIBUTION WIDTH 13.3 % (11.5-14.5); WHITE BLOOD COUNT 8.9 x10^3/uL (4.0-11.0)
--- NOTE | 2016-12-11 06:36 | PN ---
DATE: 12/10/2016 SUBJECTIVE: The patient is sitting comfortably in her recliner, managed to get out of the bed with physical therapy, managed to put weight on her left lower extremity. She underwent left hip hemiarthroplasty successfully yesterday. She was seen by the neurosurgical team and ____ recommended repeating her CT scan in a week's time. On questioning her this morning, she denied any complaint. PHYSICAL EXAMINATION: GENERAL: When I examined her, she looked pale, but no jaundice, cyanosis, or thyromegaly. No jugular venous distention. No limb edema. VITAL SIGNS: Her heart rate was 89, blood pressure was 119/47, temperature was 97.5, respiratory rate was 16 and oxygen saturation was 93% on 4 liters of oxygen. HEAD, EYES, EARS, NOSE AND THROAT: Showed normocephalic, atraumatic. NECK: Supple. HEART: Showed normal first and second heart sounds with no gallop, rub or murmur. CHEST: Clear to auscultation. No crepitation or rhonchi. ABDOMEN: Distended, soft, nontender. NEUROLOGIC: She is demented, but without any obvious lateralizing sign. She moves all extremities without difficulty. She is weightbearing as tolerated, managed to get out of the bed to a recliner without difficulty. Her intake was 2200, output was 670. LABORATORY DATA: As of this morning, her white cell count was 11,100, hemoglobin 10.3, hematocrit 30, MCV 88, and platelet count 254,000. Her chemistry showed a serum sodium 139, potassium 4.3, chloride 104, bicarbonate 28, anion gap of 7, BUN 22, creatinine 0.9, estimated GFR was 60 mL per minute. Her glucose was 118, calcium was 8.6. Total bilirubin, AST, ALT, alkaline phosphatase were normal. Total protein 5.8, albumin 2.4. ASSESSMENT: Fall with resultant displaced left femoral neck fracture, status post left hip hemiarthroplasty, small subdural hematoma for which she was seen by the neurosurgical team who recommended a followup CT scan in 1 week's time. PLAN: My plan is to observe her for another 24 hours, and if she remains stable, we will discharge her back to [facility] where she was actually on hospice care. YANDEL WU MD DR: Kali JOB#: [id number] / [id number]
[2016-12-11 07:00] VITALS: BP 106/43
[2016-12-11 07:03] LABS: ALBUMIN 2.2 g/dL (3.4-5.0); ALBUMIN/GLOBULIN RATIO 0.6 (1.0-1.7); CALCIUM 8.3 mg/dL (8.5-10.1); CREATININE 0.9 mg/dL (0.6-1.0); GFR 60.2; POTASSIUM 4.2 mmol/L (3.5-5.1); TOTAL BILIRUBIN 0.3 mg/dL (0.2-1.0); TOTAL PROTEIN 5.6 g/dL (6.4-8.2)
[2016-12-11] MEDS: METOPROLOL SUCC 24HR ER 50 MG TAB.ER.24H. PO SCH (09:00)
[2016-12-11] MEDS: TRAMADOL 50 MG TABLET. PO SCH ×2 (09:00→09:15)
[2016-12-11] MEDS: CETIRIZINE HCL 10 MG TABLET. PO SCH (09:14)
[2016-12-11] MEDS: SERTRALINE 50 MG TABLET. PO SCH (09:14)
[2016-12-11] MEDS: OXYBUTYNIN CHLORIDE 5 MG TABLET PO SCH (09:14)
[2016-12-11] MEDS: DOCUSATE SODIUM 100 MG CAPSULE. PO SCH (09:14)
[2016-12-11] MEDS: GABAPENTIN 300 MG CAPSULE. PO SCH (09:15)
[2016-12-11] MEDS: SENNOSIDES/DOCUSATE 8.6/50MG TABLET. PO SCH (09:15)
[2016-12-11] MEDS: MEMANTINE 10 MG TABLET. PO SCH (09:15)
[2016-12-11] MEDS: PANTOPRAZOLE 40 MG TABLET. PO SCH (09:15)
[2016-12-11 11:00] VITALS: BP 107/47
[2016-12-11] MEDS ORDERED: CETI10TA16 PO (11:38)
[2016-12-11] MEDS ORDERED: CYAN100031 IM (11:39)
[2016-12-11] MEDS ORDERED: OXYB5TAB7 PO (11:42)
[2016-12-11] MEDS ORDERED: OXYC5TAB88 PO (11:43)
[2016-12-11] MEDS ORDERED: POLY255P PO (11:44)
[2016-12-11] MEDS ORDERED: SENN1TAB5 PO (11:46)
--- NOTE | 2016-12-11 12:16 | RAD ---
EXAM: Head CT without contrast. HISTORY: Altered mental status. TECHNIQUE: Computed tomographic images of the head were obtained without contrast. COMPARISON: 12/08/2016. FINDINGS: There has been interval decrease in the size and attenuation of a right subdural hematoma along the right cerebral convexity, measuring 3 mm in maximum dimension. No new hemorrhage is seen. There is a posterior left scalp hematoma. There are areas of decreased attenuation within the cerebral white matter, nonspecific and likely related to chronic small vessel disease. There is a suspected chronic infarct within the right thalamus. There is cerebral atrophy. The visualized portions of the orbits, paranasal sinuses and mastoid air cells are unremarkable. No suspicious calvarial lesion is seen. IMPRESSION: 1. Decreased in a small subacute subdural hematoma along the right cerebral convexity. 2. Scattered areas of hypodensity within the cerebral white, likely due to chronic small vessel disease.. 3. 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 4. Cerebral volume loss. 5. Posterior left scalp hematoma. PQRS Compliance Statement: One or more of the following individualized dose reduction techniques were utilized for this examination: 1. Automated exposure control 2. Adjustment of the mA and/or kV according to patient size 3. Use of iterative reconstruction technique
--- NOTE | 2016-12-11 14:50 | PDOC ---
ORTHO PROGRESS NOTES Subjective Patient currently unresponsive to voice and touch. RN states she has had a sudden change in mental status and is going down for CT of head. Post-op Day: 2 (Left hip hemiarthroplasty) Vitals Vital Signs Date Time Temp Pulse Resp B/P Pulse Ox O2 Delivery O2 Flow Rate FiO2 12/11/16 11:00 98.3 57 18 107/47 91 Nasal Cannula 2.0 98.3 Labs Laboratory Tests Test 12/09/16 15:31 12/09/16 20:46 12/10/16 04:45 12/10/16 08:02 Glucose (Fingerstick) 174mg/dL (70-99) 288mg/dL (70-99) 177mg/dL (70-99) White Blood Count 11.1x10^3/uL (4.0-11.0) Red Blood Count 3.41x10^6/uL (3.50-5.40) Hemoglobin 10.3g/dL (12.0-15.5) Hematocrit 30.0% (36.0-47.0) Mean Corpuscular Volume 88fL (79-100) Mean Corpuscular Hemoglobin 30pg (25-35) Mean Corpuscular Hemoglobin Concent 34g/dL (31-37) Red Cell Distribution Width 13.6% (11.5-14.5) Platelet Count 154x10^3/uL (140-400) Neutrophils (%) (Auto) 84% (31-73) Lymphocytes (%) (Auto) 8% (24-48) Monocytes (%) (Auto) 8% (0-9) Eosinophils (%) (Auto) 0% (0-3) Basophils (%) (Auto) 0% (0-3) Neutrophils # (Auto) 9.4x10^3uL (1.8-7.7) Lymphocytes # (Auto) 0.8x10^3/uL (1.0-4.8) Monocytes # (Auto) 0.9x10^3/uL (0.0-1.1) Eosinophils # (Auto) 0.0x10^3/uL (0.0-0.7) Basophils # (Auto) 0.0x10^3/uL (0.0-0.2) Sodium Level 139mmol/L (136-145) Potassium Level 4.3mmol/L (3.5-5.1) Chloride Level 104mmol/L (98-107) Carbon Dioxide Level 28mmol/L (21-32) Anion Gap 7 (6-14) Blood Urea Nitrogen 22mg/dL (7-20) Creatinine 0.9mg/dL (0.6-1.0) Estimated GFR (Cockcroft-Gault) 60.2 BUN/Creatinine Ratio 24 (6-20) Glucose Level 218mg/dL (70-99) Calcium Level 8.6mg/dL (8.5-10.1) Total Bilirubin 0.3mg/dL (0.2-1.0) Aspartate Amino Transf (AST/SGOT) 18U/L (15-37) Alanine Aminotransferase (ALT/SGPT) 16U/L (14-59) Alkaline Phosphatase 58U/L (46-116) Total Protein 5.8g/dL (6.4-8.2) Albumin 2.4g/dL (3.4-5.0) Albumin/Globulin Ratio 0.7 (1.0-1.7) Test 12/10/16 10:02 12/10/16 16:39 12/10/16 17:40 12/10/16 21:08 Glucose (Fingerstick) 176mg/dL (70-99) 188mg/dL (70-99) 178mg/dL (70-99) Hemoglobin 10.1g/dL (12.0-15.5) Hematocrit 29.5% (36.0-47.0) Mean Corpuscular Hemoglobin Concent 34g/dL (31-37) Test 12/11/16 05:50 12/11/16 07:26 12/11/16 11:21 White Blood Count 8.9x10^3/uL (4.0-11.0) Red Blood Count 2.96x10^6/uL (3.50-5.40) Hemoglobin 8.9g/dL (12.0-15.5) Hematocrit 26.3% (36.0-47.0) Mean Corpuscular Volume 89fL (79-100) Mean Corpuscular Hemoglobin 30pg (25-35) Mean Corpuscular Hemoglobin Concent 34g/dL (31-37) Red Cell Distribution Width 13.3% (11.5-14.5) Platelet Count 128x10^3/uL (140-400) Neutrophils (%) (Auto) 74% (31-73) Lymphocytes (%) (Auto) 14% (24-48) Monocytes (%) (Auto) 9% (0-9) Eosinophils (%) (Auto) 2% (0-3) Basophils (%) (Auto) 0% (0-3) Neutrophils # (Auto) 6.6x10^3uL (1.8-7.7) Lymphocytes # (Auto) 1.3x10^3/uL (1.0-4.8) Monocytes # (Auto) 0.8x10^3/uL (0.0-1.1) Eosinophils # (Auto) 0.2x10^3/uL (0.0-0.7) Basophils # (Auto) 0.0x10^3/uL (0.0-0.2) Sodium Level 143mmol/L (136-145) Potassium Level 4.2mmol/L (3.5-5.1) Chloride Level 108mmol/L (98-107) Carbon Dioxide Level 28mmol/L (21-32) Anion Gap 7 (6-14) Blood Urea Nitrogen 25mg/dL (7-20) Creatinine 0.9mg/dL (0.6-1.0) Estimated GFR (Cockcroft-Gault) 60.2 BUN/Creatinine Ratio 28 (6-20) Glucose Level 138mg/dL (70-99) Calcium Level 8.3mg/dL (8.5-10.1) Total Bilirubin 0.3mg/dL (0.2-1.0) Aspartate Amino Transf (AST/SGOT) 17U/L (15-37) Alanine Aminotransferase (ALT/SGPT) 12U/L (14-59) Alkaline Phosphatase 54U/L (46-116) Total Protein 5.6g/dL (6.4-8.2) Albumin 2.2g/dL (3.4-5.0) Albumin/Globulin Ratio 0.6 (1.0-1.7) Glucose (Fingerstick) 128mg/dL (70-99) 134mg/dL (70-99) Laboratory Tests Test 12/10/16 16:39 12/10/16 17:40 12/10/16 21:08 12/11/16 05:50 Glucose (Fingerstick) 188mg/dL (70-99) 178mg/dL (70-99) Hemoglobin 10.1g/dL (12.0-15.5) 8.9g/dL (12.0-15.5) Hematocrit 29.5% (36.0-47.0) 26.3% (36.0-47.0) Mean Corpuscular Hemoglobin Concent 34g/dL (31-37) 34g/dL (31-37) White Blood Count 8.9x10^3/uL (4.0-11.0) Red Blood Count 2.96x10^6/uL (3.50-5.40) Mean Corpuscular Volume 89fL (79-100) Mean Corpuscular Hemoglobin 30pg (25-35) Red Cell Distribution Width 13.3% (11.5-14.5) Platelet Count 128x10^3/uL (140-400) Neutrophils (%) (Auto) 74% (31-73) Lymphocytes (%) (Auto) 14% (24-48) Monocytes (%) (Auto) 9% (0-9) Eosinophils (%) (Auto) 2% (0-3) Basophils (%) (Auto) 0% (0-3) Neutrophils # (Auto) 6.6x10^3uL (1.8-7.7) Lymphocytes # (Auto) 1.3x10^3/uL (1.0-4.8) Monocytes # (Auto) 0.8x10^3/uL (0.0-1.1) Eosinophils # (Auto) 0.2x10^3/uL (0.0-0.7) Basophils # (Auto) 0.0x10^3/uL (0.0-0.2) Sodium Level 143mmol/L (136-145) Potassium Level 4.2mmol/L (3.5-5.1) Chloride Level 108mmol/L (98-107) Carbon Dioxide Level 28mmol/L (21-32) Anion Gap 7 (6-14) Blood Urea Nitrogen 25mg/dL (7-20) Creatinine 0.9mg/dL (0.6-1.0) Estimated GFR (Cockcroft-Gault) 60.2 BUN/Creatinine Ratio 28 (6-20) Glucose Level 138mg/dL (70-99) Calcium Level 8.3mg/dL (8.5-10.1) Total Bilirubin 0.3mg/dL (0.2-1.0) Aspartate Amino Transf (AST/SGOT) 17U/L (15-37) Alanine Aminotransferase (ALT/SGPT) 12U/L (14-59) Alkaline Phosphatase 54U/L (46-116) Total Protein 5.6g/dL (6.4-8.2) Albumin 2.2g/dL (3.4-5.0) Albumin/Globulin Ratio 0.6 (1.0-1.7) Test 12/11/16 07:26 12/11/16 11:21 Glucose (Fingerstick) 128mg/dL (70-99) 134mg/dL (70-99) Notes Patient unresponsive to voice and touch. responds to pain. Incision well approximated, no drainage. NV intact LLE. Problems: (1) Fracture of neck of left femur Assessment and Plan acute change in mental status- CT of head, managed by medical Ok to be WBAT LLE when more medically stable. Problem Qualifiers (1) Fracture of neck of left femur: Encounter type: subsequent encounter Fracture type: closed Fracture healing : with routine healing Qualified Code: S72.002D - Fracture of unspecified part of neck of left femur, subsequent encounter for closed fracture with routine healing NICKY PRATER APRN Dec 11, 2016 14:50
[2016-12-11] MEDS ORDERED: ATORVASTATIN CALCIUM 10 MG TABLET. PO SCH (21:00)
--- NOTE | 2016-12-12 01:00 | PN ---
DATE: 12/11/2016 SUBJECTIVE: The patient is resting slightly propped up in bed, in no apparent distress. She is lethargic, arousable to open eyes and ____ back to sleep. She fell in the half-way and apparently has had a small acute right lateral hemispheric subdural hemorrhage and left femoral neck fracture that was treated with left hip hemiarthroplasty. Given that she has not had any pain medication overnight and there is no metabolic reason for her altered mental status, I will arrange for her to have a CT scan of the head without contrast and if there is no change in her subdural hematoma, the patient can be discharged back to [facility]. If the hematoma is enlarged, we will consult Dr. Tatum ____ surgical intervention given that she is already on hospice. PHYSICAL EXAMINATION: GENERAL: When I examined her, she looked pale, but no jaundice, cyanosis or thyromegaly. No jugular venous distension. No limb edema. VITAL SIGNS: Her heart rate was 62, blood pressure was 106/43, temperature was 98, respiratory rate was 18 and oxygen saturation was 93% on 4 liters of oxygen. The rest of clinical examination is stable and has not really changed except that she has altered mental status, lethargic, despite taking only tramadol last night. LABORATORY DATA: This morning showed a serum sodium 143, potassium 4.2, chloride 108, bicarbonate 28, anion gap of 7, BUN 25, creatinine 0.9, estimated GFR was 60 mL per minute. Her glucose 138. Calcium was 8.3. Total bilirubin, AST, ALT, alkaline phosphatase were normal. Total protein was 5.6, albumin 2.2. White cell count was 8900, hemoglobin 9, hematocrit 26, MCV 89 and platelet count of 128,000. ASSESSMENT: 1. Fall with resultant displaced left femoral neck fracture status post left hip hemiarthroplasty. 2. Small subdural hematoma for which she was seen by the neurosurgical team who recommended a followup CT scan in one week's time. 3. Altered mental status. The patient is extremely lethargic despite the fact that she is not on any pain medications. PLAN: I will do a stat CT scan and if there is no change, we will discharge her back . YANDEL WU MD DR: CRICKET/adrien JOB#: [id number] / [id number]
--- NOTE | 2016-12-12 13:58 | PATHOLOGY ---
PATHOLOGY REPORT * * * * * * * * FINAL DIAGNOSIS: Bone, femoral head, hip replacement: - Femoral head with fracture and associated hemorrhage. (BLASM:; d/t: 12/12/16) REPORT ELECTRONICALLY SIGNED BY: Osmany Arriaga M.D. DATE/TIME: 12/12/2016 13:57 * * * * * * * * GROSS PATHOLOGY: Received in formalin labeled "Candace Staples, left hip bone and tissue," is a femoral head measuring 4.4 x 4.4 x 3.7 cm in greatest dimensions and separately submitted femoral neck measuring 4.0 x 2.4 x 1.5 cm. The articular surface is light mensah and smooth in appearance. Sectioning reveals a light mensah marrow space, with the distal most aspect hemorrhagic in appearance, consistent with a fracture site. Automatic [employer] tissue from the fracture site is submitted in cassette A1, following decalcification. (CAA; 12/11/2016) INITIAL CPT CODE(S): A; 55680, 65783 Professional services performed [place] [address] Technical services performed by [facility] at [address] [place] [address] [address] [address]. SPECIMEN(S) RECEIVED: A.Left hip bone and tissue CLINICAL HISTORY: Left hip fracture PATIENT: CANDACE STAPLES /AGE: 7 1935 (Age: 81) PATIENT #: [id number] ALT CASE #: SPECIMEN COLLECTION DATE: 12/09/2016 SPECIMEN RECEIVED DATE: 12/10/2016 [facility] - [id number] [place] [address] - PHONE: [phone] * * * END OF REPORT * * *
[2017-01-08] MEDS ORDERED: CYANOCOBALAMIN (VITAMIN B-12) 1,000 MCG/ML VIAL IM SCH (09:00)
== END 2016-12-11 15:00 | disposition hospice, inpatient (51) | DRG 956 ==
LOC: ER 21:13 → 4 NORTH 12-09 03:10
PROVIDERS: ADMIT Internal Medicine; ATTEND Internal Medicine
PROC: 0SRS0J9 Replacement of Left Hip Joint, Femoral Surface with Synthetic Substitute, Cemented, Open Approach (ICD-10-PCS; principal; 2016-12-09 14:50)
DX: S72.002A Fracture of unspecified part of neck of left femur, initial encounter for closed fracture (principal); S06.5X0A Traumatic subdural hemorrhage without loss of consciousness, initial encounter; N39.0 Urinary tract infection, site not specified; F03.90 Unspecified dementia, unspecified severity, without behavioral disturbance, psychotic disturbance, mood disturbance, and anxiety; E10.22 Type 1 diabetes mellitus with diabetic chronic kidney disease; G47.30 Sleep apnea, unspecified; I12.9 Hypertensive chronic kidney disease with stage 1 through stage 4 chronic kidney disease, or unspecified chronic kidney disease; Z51.5 Encounter for palliative care; F32.9 Major depressive disorder, single episode, unspecified; I25.10 Atherosclerotic heart disease of native coronary artery without angina pectoris; K21.9 Gastro-esophageal reflux disease without esophagitis; N18.9 Chronic kidney disease, unspecified; W19.XXXA Unspecified fall, initial encounter; Y93.89 Activity, other specified; Y99.8 Other external cause status; Z79.4 Long term (current) use of insulin; Y92.129 Unspecified place in nursing home as the place of occurrence of the external cause; Z90.11 Acquired absence of right breast and nipple; Z88.8 Allergy status to other drugs, medicaments and biological substances; Z88.5 Allergy status to narcotic agent; Z91.013 Allergy to seafood; Z79.899 Other long term (current) drug therapy
CPT/HCPCS: 36415; 70450; 71010; 72125; 73501; 73502; 80053; 81001; 82947; 83880; 84484; 85007; 85014; 85018; 85027; 85610; 85730; 87086; 87641; 93005; 96374; 96376; G0481; J0171; J0690; J0696; J1100; J1815; J1885; J2270; J2405; J2704; J2710; J2795; J3010; J3490; J7030; J7120; S0028; 97530; 99285-25